=== PATIENT | female | born 1990 | race African-American/Black ===

== ENCOUNTER 2016-09-16 19:31 | Inpatient (IN) ==
[2016-09-16] MEDS ORDERED: SODIUM CHLORIDE 0.9% 1,000 ML IV STA (20:33)
[2016-09-16 20:55] LABS: Basophils # 0.1 10*3/uL (0.0-0.2); Basophils % 0.2 % (0.0-0.8); Hematocrit 33.1 VOL% (35.7-47.0); Immature Granulocytes % 1.1 %; Immature Granulocytes Absolute 0.35 #; Lymphocytes # 1.9 10*3/uL (1.4-4.0); Lymphocytes % 6.1 % (21.3-54.2); Mean Corpuscular HGB Conc 33.2 GM/DL (32-36); Mean Corpuscular Hemoglobin 27 PG (27-34); Mean Corpuscular Volume 82.1 FL (87-102); Mean Platelet Volume 9.5 FL (9.6-12.0); Monocytes # 4.3 10*3/uL (0.11-0.8); Monocytes % 13.8 % (1.7-12.7); Neutrophils # 24.6 10*3/uL (1.4-7.4); Neutrophils % 78.8 % (38.7-73.9); Platelet Count 371 T/CUMM (130-400); Red Blood Count 4.03 MC/CUMM (3.8-5.5); Red Cell Distribution Width 13.8 % (9.3-17.3); White Blood Count 31.2 T/CUMM (4-12)
--- NOTE | 2016-09-16 21:07 | XRay Report ---
History: Cough and fever. Right-sided wheezing Date: 09/16/2016 Study: Chest x-ray PA and lateral Comparison exam: December 19, 2015 The cardiomediastinal silhouette and pulmonary vasculature are unremarkable. The lungs and pleural spaces are clear. The osseous structures are unremarkable. Impression: No acute cardiopulmonary process. No significant interval change PROCEDURE INTERPRETED AT [facility] DEPARTMENT OF RADIOLOGY Final Report Signed by: Dr. Donna Hart
[2016-09-16] MEDS ORDERED: VANCOMYCIN INJ 1,000 MG in SODIUM CHLORIDE 0.9% 250 ML IV STA (21:15)
[2016-09-16] MEDS ORDERED: cefTRIAXone 1,000 MG in SODIUM CHLORIDE 0.9% 100 ML IV STA (21:15)
[2016-09-16 21:17] LABS: Lymphocytes 7 % (20-55); Ovalocytes Slight; Platelet Estimate Adequate; Poikilocytosis Slight; Segmented Neutrophils 81 % (50-85); Total Cells Counted 100
[2016-09-16 21:19] LABS: Calcium 9.1 MG/DL (8.5-10.1); Osmolality,Calculated 269.1 MOS/KG (273-304); Potassium 3.2 MMOL/L (3.5-5.1)
[2016-09-16] MEDS ORDERED: MORPHINE 2 MG/1 ML SYRINGE IV STA (21:20)
[2016-09-16] MEDS ORDERED: ONDANSETRON 4 MG/2 ML VIAL IV STA (21:20)
[2016-09-16] MEDS ORDERED: LORazepam 2 MG/1 ML VIAL IV STA (21:20)
[2016-09-16] MEDS ORDERED: ACYCLOVIR INJ 750 MG in SODIUM CHLORIDE 0.9% 250 ML IV SCH (21:30)
[2016-09-16] MEDS ORDERED: ACYCLOVIR INJ 1,000 MG in SODIUM CHLORIDE 0.9% 250 ML IV SCH (21:30)
[2016-09-16] MEDS ORDERED: ONDANSETRON 4 MG/2 ML VIAL ONE (21:32)
[2016-09-16] MEDS ORDERED: MORPHINE 2 MG/1 ML SYRINGE ONE (21:32)
[2016-09-16] MEDS ORDERED: LORazepam 2 MG/1 ML VIAL ONE (21:32)
[2016-09-16] MEDS ORDERED: VANCOMYCIN 1,000 MG VIAL ONE (21:56)
[2016-09-16] MEDS ORDERED: cefTRIAXone 1,000 MG VIAL ONE (21:56)
[2016-09-16] MEDS ORDERED: SODIUM CHLORIDE 0.9% 100 ML IV ONE (21:56)
[2016-09-16] MEDS ORDERED: KETOROLAC 30 MG/1 ML VIAL IV STA (23:06)
[2016-09-16] MEDS ORDERED: ACETAMINOPHEN 500 MG TABLET PO STA (23:06)
[2016-09-16 23:31] LABS: Appearance,CSF Clear; Red Blood Cell,CSF 1 C/CUMM; White Blood Cell,CSF 1 C/CUMM
[2016-09-16] MEDS ORDERED: ACETAMINOPHEN 325 MG TABLET PO PRN (23:49)
[2016-09-16] MEDS ORDERED: KETOROLAC 30 MG/1 ML VIAL ONE (23:50)
[2016-09-16] MEDS ORDERED: ACETAMINOPHEN 500 MG TABLET ONE (23:50)
--- NOTE | 2016-09-16 23:58 | Hospitalist History & Physical ---
Assessment and Plan (1) Fever Status: Acute Assessment and plan: Patient presented with a subjective fever and leukocytosis CSF seem to be negative. We will follow blood cultures and obtain urinalysis and culture. I will also get test and if negative get a CT abdomen without contrast to evaluate for Pyelonephritis. Start on Zosyn empirically due to very high white count Current Visit: Yes (2) Leucocytosis Status: Acute Assessment and plan: Likely due to pyelonephritis. There is subjective symptom of sore throat I will get a throat culture but I do not see obvious exudate Current Visit: Yes (3) Hypokalemia Status: Acute Assessment and plan: Replace with potassium chloride Current Visit: Yes History of Present Illness Chief complaint: Headache and fever History of present illness: Ms. Mari is a 25 year old female with no past medical history came to ER for evaluation of headache started 2 days ago feels like pressure and pulsatile associate with aching all over and fever as high as 102 at home. He goes down with Tylenol no coughing or shortness of breath but has sore throat. No nausea vomiting diarrhea no dysuria hematuria but does have like flank pain for 2 days without any vaginal discharge. In the ER she was evaluated with a CT scan of the head which did not reveal any acute abnormality. Chest x-ray was reported negative for any infiltrate. She underwent CSF studies and started empirically on antibiotics including vancomycin and Rocephin and the acyclovir. CSF studies showing WBC 1 glucose 81 RBC 1 total protein 22 lactate 2.2 . Blood culture were obtained. I will call to admit the patient Home Medications Medication Instructions Recorded Confirmed Type No Known Home Medications [No 09/16/16 09/16/16 History Known Home Medications] Allergies Allergy/AdvReac Type Severity Reaction Status Date / Time No Known Allergies Allergy Verified 04/20/15 11:53 Medical,Surgical,& Family Hx - Medical History Psychological: History of: Anxiety Disorders - Surgical History Reproductive Surgeries: Surgical HX of;: Section - Family History Family History: noncontributory - Social History Smoking Status: Smoker, status unknown Frequency of Alcohol Use: None Type of Drug Use: None 12 point system: reviewed and no additional remarkable complaints except as stated (Unless indicated in HPI) Exam - Constitutional Vitals: Period Temp Pulse Resp BP Sys/López Pulse Ox Last 24 Hr 99.7 F-99.7 F 74-120 18-20 117-153/74-100 100-100 General appearance: normal weight, no acute distress - Head Head exam: Present: normal inspection, normocephalic - Eye Eye exam: Present: EOMI. Absent: conjunctival injection, scleral icterus Pupils: Present: KAUSHAL, normal accommodation - ENT ENT exam: Present: normal exam, other (Tonsils may be enlarged but no exudate or congestion) - Respiratory Respiratory exam: Present: clear to auscultation bilaterally. Absent: rales, rhonchi - Cardiovascular Cardiovascular exam: Present: regular rate and rhythm. Absent: tachycardia - GI/Abdominal GI/Abdominal exam: Present: normal bowel sounds, tenderness (Right flank/CVA tenderness), soft. Absent: distended - Extremities Exam Extremities exam: Present: normal inspection. Absent: edema - Neurological Exam Neurological exam: Present: alert, oriented X3. Absent: motor sensory deficit - Skin Skin exam: Present: normal color Results - Labs CBC & BMP: 09/16/16 20:41 09/16/16 20:41 Lab Results: I have reviewed the past 24 hour labs
[2016-09-17 00:13] LABS: Apearance,Urine CLOUDY (Clear); Bacteria,Urine Moderate /HPF (Few); Bilirubin,Urine Negative (Negative); Blood, Urine Large mg/dL (Negative); Glucose,Urine (UA) Negative (Negative); Ketones,Urine 5 mg/dL (Negative); Mucus,Urine Occasional /LPF (Occasional); Nitrite,Urine Positive (Negative); Protein,Urine 30 MG/DL; RBC,Urine 4 /HPF (0-4); Renal Epithelial Cells,Urine Occasional /HPF (<1); Squamous Epithelial Cell,Urine Moderate /HPF (0-10); Transitional Epi Cells,Urine Occasional /HPF (<1); Urine Color Yellow (Yellow); Urine Specific Gravity 1.012 (1.001-1.035); Urine Urobilinogen < 2.0 EU/DL (0.2-1.0); WBC,Urine 67 /HPF (0-6)
[2016-09-17] MEDS ORDERED: POTASSIUM CHLORIDE 20 MEQ TABLET PO ONE (00:30)
--- NOTE | 2016-09-17 00:30 | Emergency Department Note ---
ISmitha Emily, am scribing for, and in the presence of, Chema Lindo M.D. 20 :40. Guicho Mohr Howard T, M.D., personally performed the services described in this documentation, ascribed by Mariajose Bone in my presence, and it is both accurate and complete . Arrival - Arrival Chief Complaint: Upper Respiratory Stated Complaint: HURTING ALL OVER/FEVER ED Nursing Triage Note: patient states she is "hurting allover and hot", no temp taken at home also c/o headache. temp in triage 99.7 Mode of Arrival: Wheelchair Limitations: No Limitations Source: Patient Time Seen by Provider: 09/16/16 20:22 - History of Present Illness HPI Narrative: Pt is a 25 y/o female who came to ED with c/o severe MADDEN, fever in waves, and body aches that started two days. Pt has associated sxs of productive cough and pain worse when coughs, neck pain and worse with movement, and no appetite. Pt denies recent sinus infection, hx of PNA or lung issues, or asthma. Pt reports taking Tylenol for the fever that came in waves which helped reduce but would return, and took Benadryl for the productive cough. Pt's PCP is Dr. Gomez but denies smoking hx. Onset (ago): day(s) Consistency: constant Severity: mild, moderate Severity scale (1-10): 4 Quality: aching Allergies/Adverse Reactions: Allergies Allergy/AdvReac Type Severity Reaction Status Date / Time No Known Allergies Allergy Verified 04/20/15 11:53 Home Medications: Home Medications Medication Instructions Recorded Confirmed Type No Known Home Medications [No 09/16/16 09/16/16 History Known Home Medications] Review of System - Review of System 12 point system: reviewed and no additional remarkable complaints except as stated - Review of System Constitutional: Present: fever, weakness (body aches). Absent: chills Respiratory: Present: cough. Absent: respiratory distress, wheezing Cardiovascular: Absent: chest pain Gastrointestinal: Absent: abdominal pain, nausea, vomiting Musculoskeletal: Present: neck pain (with movement). Absent: arm pain, back pain, leg pain Skin: Absent: rash Neurological: Present: headache (severe). Absent: confusion, abnormal gait, vertigo Medical,Surgical,& Family Hx - Medical History Psychological: History of: Anxiety Disorders - Surgical History Surgical History: noncontributory - Family History Family History: noncontributory - Social History Smoking Status: Smoker, status unknown Frequency of Alcohol Use: None Type of Drug Use: None Marital Status: Single Lives With:: Parent Functional capacity: independent ambulation Exam Vital Signs: Vital Signs Temperature 99.7 F H 09/16/16 19:34 Pulse Rate 118 H 09/16/16 22:36 Respiratory Rate 18 09/16/16 22:36 Blood Pressure 117/74 09/16/16 22:36 O2 Sat by Pulse Oximetry 100 09/16/16 22:36 - General General appearance: alert, in no apparent distress - Head Head exam: Present: atraumatic, normocephalic - Eye Eye exam: Present: PERRL, EOMI - ENT ENT exam: Present: mucous membranes moist. Absent: mucous membranes dry - Neck Neck exam: Present: full ROM, trachea midline. Absent: tenderness, meningismus - Chest Chest inspection: Present: symmetric chest wall rise. Absent: tenderness - Respiratory Respiratory exam: Present: wheezes (right side). Absent: accessory muscle use, respiratory distress - Cardiovascular Cardiovascular exam: Present: regular rate, normal rhythm, normal heart sounds - Abdominal Exam Abdominal exam: Present: soft, normal bowel sounds. Absent: distention, tenderness - Extremities Exam Extremities exam: Present: full ROM. Absent: tenderness, pedal edema - Neurological Exam Neurological exam: Present: alert, oriented X3, CN II-XII intact. Absent: motor sensory deficit - Psychiatric Psychiatric exam: Present: normal affect, normal mood - Skin Skin exam: Present: warm, dry Course Course Narrative: Medical decision making: Negative CT scan and clear CSF, however with elevated white cell count and significant headache treatment initiated presumptively for possible meningitis encephalitis or similar. She does have evidence of UTI so this is likely because of elevated white count and symptoms even though she denies urinary tract infection symptoms. Will discuss with hospitalist for continued evaluation and treatment of hospitalization for reevaluation of in the morning Results - Labs CBC & BMP: 09/16/16 20:41 09/16/16 20:41 Lab Results: I have reviewed the patients labs Labs: Laboratory Tests 09/16/16 20:41 WBC 31.2 H RBC 4.03 Hgb 11.0 L Hct 33.1 L MCV 82.1 L Plt Count 371 MPV 9.5 L Neut % (Auto) 78.8 H Lymph % (Auto) 6.1 L Coffee % (Auto) 13.8 H Neut # (Auto) 24.6 H Coffee # (Auto) 4.3 H Laboratory Tests 09/16/16 20:41 Total Counted 100 Segmented Neutrophils 81 Lymphocytes 7 L Monocytes 12 Platelet Estimate Adequate Poikilocytosis Slight Ovalocytes Slight Laboratory Tests 09/16/16 20:41 Sodium 135 L Potassium 3.2 L Chloride 103 Carbon Dioxide 23 Creatinine 1.10 H Glucose 118 H Calculated Osmolality 269.1 L Laboratory Tests 09/16/16 09/16/16 09/16/16 21:35 21:38 21:38 Lactic Acid 0.9 CSF Glucose 81 H CSF Total Protein 22 Microbiology 09/16/16 21:38 Cerebral Spinal Fluid Direct Antigen Panel - Final Neg for Antigens-see report Laboratory Tests 09/16/16 21:38 CSF Lactate 2.2 Laboratory Tests 09/16/16 21:38 CSF Appearance Clear CSF Color Colorless CSF WBC 1 CSF RBC 1 CSF Diff Total Count 0 CSF Diff Comment - Diagnostic Findings Procedure: Chest x-ray: report reviewed by me (No acute cardiopulmonary process. No significant interval change.), CT: report reviewed by me (Head and brain: No acute process) Disposition Clinical Impression: Fever, Headache, UTI (urinary tract infection) Case discussed with: patient, patient's family Disposition: Still a Patient Condition: Stable Time of Disposition: 00:30
[2016-09-17] MEDS: ACYCLOVIR INJ 750 MG in SODIUM CHLORIDE 0.9% 250 ML IV SCH ×4 (02:14→23:14)
[2016-09-17] MEDS: SODIUM CHLORIDE 0.9% 1,000 ML IV SCH ×2 (02:17→16:52)
[2016-09-17] MEDS: PIPERACILLIN/TAZOBACTAM 3,375 MG in SODIUM CHLORIDE 0.9% 100 ML IV SCH ×2 (02:22→09:27)
[2016-09-17 07:03] LABS: Basophils % 0.1 % (0.0-0.8); Hematocrit 30.7 VOL% (35.7-47.0); Hemoglobin 9.9 GM/DL (12.0-16.0); Immature Granulocytes % 0.8 %; Immature Granulocytes Absolute 0.21 #; Lymphocytes # 2.8 10*3/uL (1.4-4.0); Lymphocytes % 10.9 % (21.3-54.2); Mean Corpuscular HGB Conc 32.2 GM/DL (32-36); Mean Corpuscular Hemoglobin 27 PG (27-34); Mean Platelet Volume 9.7 FL (9.6-12.0); Monocytes # 2.9 10*3/uL (0.11-0.8); Monocytes % 11.6 % (1.7-12.7); Neutrophils # 19.5 10*3/uL (1.4-7.4); Neutrophils % 76.6 % (38.7-73.9); Platelet Count 319 T/CUMM (130-400); Red Cell Distribution Width 14.2 % (9.3-17.3); White Blood Count 25.4 T/CUMM (4-12)
[2016-09-17 07:28] LABS: Band Neutrophils 5 % (0-10); Hypochromasia 1+; Lymphocytes 10 % (20-55); Segmented Neutrophils 77 % (50-85); Total Cells Counted 100
[2016-09-17 07:29] LABS: Microcytosis Slight
[2016-09-17 07:31] LABS: Calcium 8.3 MG/DL (8.5-10.1); Osmolality,Calculated 274.5 MOS/KG (273-304); Potassium 3.8 MMOL/L (3.5-5.1)
--- NOTE | 2016-09-17 08:29 | CT Report ---
History: Headache and fever Date: 09/16/2016 Study: CT head without contrast Comparison exam: No previous head CT available The study was also reviewed by [facility]. Transaxial CT sections were obtained through the head without IV contrast. Total DLP measures 1012.1 mGy*cm. This CT exam was performed using one or more the following dose reduction techniques: Automated exposure control, adjustment of the MA and/or KV according to patient size, or use of iterative reconstruction technique. The ventricles are midline in position without evidence of hydrocephalus. There is no mass or parenchymal hemorrhage. There is no gross CT evidence of acute cortical stroke. There is no extra-axial hematoma. There is no acute abnormality of the calvarium. The partially visualized paranasal sinuses and mastoid air cells are clear. Impression: No acute intracranial process PROCEDURE INTERPRETED AT [facility] DEPARTMENT OF RADIOLOGY Final Report Signed by: Dr. Donna Hart
[2016-09-17] MEDS: PANTOPRAZOLE 40 MG TABLET PO SCH (09:27)
[2016-09-17] MEDS: ENOXAPARIN 40 MG/0.4 ML SYRINGE SUBCUT SCH (09:27)
--- NOTE | 2016-09-17 10:38 | CT Report ---
History: Fever and leukocytosis. Suspect pyelonephritis. Right flank pain Date: 09/17/2016 Study: CT abdomen and pelvis without contrast Comparison exam: No previous similar study Technique: Spiral CT sections were obtained from the lung bases to the pubic symphysis without contrast. The CT exam was performed using one or more of the following dose reduction techniques: Automated exposure control, adjustment of the mA and/or kV according to patient size, or use of iterative reconstruction technique. CT abdomen: There is mild platelike dependent atelectasis in the lower lobes. There is no gross pleural or pericardial effusion. There is no evidence of pneumoperitoneum. The liver, spleen, pancreas, adrenal glands, bile ducts, and fluid-filled gallbladder are generally unremarkable in noncontrast CT appearance. There are some occasional scattered punctate calcifications measuring less than 2 to 3 mm in the renal sinuses bilaterally. This could represent nonobstructing nephrolithiasis or medullary nephrocalcinosis. There is no hydronephrosis. There is no definite radiopaque ureteral stone. There is some mild asymmetric perinephric fat stranding on the right which could be a secondary sign of pyelonephritis. There is no gross renal mass on this noncontrast study. There is no aortic aneurysm. There is no obvious lymphadenopathy by size criteria. The appendix is partially visualized and is grossly unremarkable where seen without obvious evidence of appendicitis. CT pelvis: There is a nonspecific 4.6 cm low density in the left adnexal area which likely represents nonspecific ovarian cyst. There is minimal free fluid in the pelvis. Impression: Mild asymmetric perinephric fat stranding on the right which could be a secondary sign of pyelonephritis. There is no obvious perinephric abscess Bilateral nonobstructing nephrolithiasis versus bilateral medullary nephrocalcinosis Nonspecific 4.6 cm left ovarian cyst PROCEDURE INTERPRETED AT [facility] DEPARTMENT OF RADIOLOGY Final Report Signed by: Dr. Donna Hart
[2016-09-17] MEDS: ONDANSETRON 4 MG/2 ML VIAL IV PRN (10:55)
--- NOTE | 2016-09-17 11:31 | Hospitalist Progress Note ---
Assessment and Plan (1) Pyelonephritis Status: Acute Assessment and plan: UA and CT consistent with this F/u urine culture Given a dose of rocephin in the ED Switched to zosyn inpatient Current Visit: Yes (2) Leucocytosis Status: Acute Assessment and plan: Secondary to pyelonephritis Also with concern for meningitis, preliminary studies unimpressive Current Visit: Yes (3) Headache Status: Acute Assessment and plan: Better today LP performed in the ED Preliminary studies negative so far Follow-up the rest of testing Given dose of vancomycin, rocephin and acyclovir in the ED Now on acyclovir and zosyn Current Visit: Yes Hospitalist: Subjective Interval history: No acute events overnight. Patient reports that her headache is a little better. She did have an episode of emesis this morning. Exam - Constitutional Vitals: Period Temp Pulse Resp BP Sys/López Pulse Ox Last 24 Hr 96.8 F-99.7 F 74-120 18-20 103-153/64-100 99-100 General appearance: normal weight - Head Head exam: Present: normocephalic, atraumatic - Eye Eye exam: Present: EOMI Pupils: Present: KAUSHAL - ENT ENT exam: Present: normal exam - Neck Neck exam: Present: normal inspection - Respiratory Respiratory exam: Present: clear to auscultation bilaterally. Absent: rhonchi, wheezes - Cardiovascular Cardiovascular exam: Present: regular rate and rhythm - GI/Abdominal GI/Abdominal exam: Present: normal bowel sounds, soft. Absent: tenderness, rebound - Extremities Exam Extremities exam: Present: normal inspection - Back Exam Back exam: Present: normal inspection - Neurological Exam Neurological exam: Present: alert, oriented X3 - Psychiatric Psychiatric exam: Present: normal affect, normal mood - Skin Skin exam: Present: warm, intact Results - Labs CBC & BMP: 09/17/16 06:27 09/17/16 06:27 Quality Measures - Stroke Symptom Onset Unknown: No
[2016-09-17] MEDS ORDERED: MORPHINE 2 MG/1 ML SYRINGE IV PRN (12:24)
[2016-09-17] MEDS: cefTRIAXone 1,000 MG in SODIUM CHLORIDE 0.9% 100 ML IV SCH (17:10)
[2016-09-17] MEDS: VANCOMYCIN INJ 1,000 MG in SODIUM CHLORIDE 0.9% 250 ML IV SCH (20:37)
[2016-09-17] MEDS: guaiFENesin/CODEINE 5 ML LIQUID PO PRN (23:13)
[2016-09-18] MEDS: SODIUM CHLORIDE 0.9% 1,000 ML IV SCH ×4 (00:49→18:26)
[2016-09-18] MEDS: VANCOMYCIN INJ 1,000 MG in SODIUM CHLORIDE 0.9% 250 ML IV SCH ×3 (05:08→22:18)
[2016-09-18 05:32] LABS: Basophils % 0.1 % (0.0-0.8); Eosinophils % 0.2 % (0.00-10.9); Hematocrit 27.8 VOL% (35.7-47.0); Hemoglobin 8.8 GM/DL (12.0-16.0); Lymphocytes # 2.8 10*3/uL (1.4-4.0); Lymphocytes % 13.9 % (21.3-54.2); Mean Corpuscular HGB Conc 31.7 GM/DL (32-36); Mean Corpuscular Hemoglobin 26 PG (27-34); Mean Corpuscular Volume 83.2 FL (87-102); Mean Platelet Volume 9.9 FL (9.6-12.0); Monocytes # 2.4 10*3/uL (0.11-0.8); Monocytes % 12.1 % (1.7-12.7); Neutrophils # 14.4 10*3/uL (1.4-7.4); Neutrophils % 72.7 % (38.7-73.9); Platelet Count 317 T/CUMM (130-400); Red Blood Count 3.34 MC/CUMM (3.8-5.5); Red Cell Distribution Width 14.2 % (9.3-17.3); White Blood Count 19.8 T/CUMM (4-12)
[2016-09-18 06:04] LABS: Calcium 8.3 MG/DL (8.5-10.1); Magnesium 1.9 MG/DL (1.8-2.4); Osmolality,Calculated 271.7 MOS/KG (273-304); Potassium 3.6 MMOL/L (3.5-5.1)
[2016-09-18 06:09] LABS: Giant Platelets Few; Hypochromasia 1+; Microcytosis Slight; Ovalocytes Slight; Platelet Estimate Adequate
[2016-09-18] MEDS: ONDANSETRON 4 MG/2 ML VIAL IV PRN ×3 (06:53→21:04)
[2016-09-18] MEDS: ACYCLOVIR INJ 750 MG in SODIUM CHLORIDE 0.9% 250 ML IV SCH ×2 (07:12→17:05)
[2016-09-18] MEDS: ENOXAPARIN 40 MG/0.4 ML SYRINGE SUBCUT SCH (08:48)
[2016-09-18] MEDS: PANTOPRAZOLE 40 MG TABLET PO SCH (08:48)
--- NOTE | 2016-09-18 10:44 | Hospitalist Progress Note ---
Assessment and Plan (1) Pyelonephritis Status: Acute Assessment and plan: UA and CT consistent with this F/u urine culture Given a dose of rocephin in the ED Continue rocephin Current Visit: Yes (2) Leucocytosis Status: Acute Assessment and plan: Secondary to pyelonephritis Improving Also with concern for meningitis, preliminary studies unimpressive Current Visit: Yes (3) Headache Status: Acute Assessment and plan: Better today LP performed in the ED Preliminary studies negative so far Follow-up the rest of testing Given dose of vancomycin, rocephin and acyclovir in the ED Continue vancomycin, rocephin and acyclovir Current Visit: Yes Hospitalist: Subjective Interval history: No acute events overnight. Yesterday evening patient with episode of bad chills and headache. She reports that the headaches are not relieved with morphine, it only makes her sleepy. Exam - Constitutional Vitals: Period Temp Pulse Resp BP Sys/López Pulse Ox Last 24 Hr 97.6 F-101 F 105-116 16-20 102-131/52-75 95-100 General appearance: over weight - Head Head exam: Present: normocephalic, atraumatic - Eye Eye exam: Present: EOMI Pupils: Present: KAUSHAL - ENT ENT exam: Present: normal exam - Neck Neck exam: Present: normal inspection - Respiratory Respiratory exam: Present: clear to auscultation bilaterally. Absent: rhonchi, wheezes - Cardiovascular Cardiovascular exam: Present: regular rate and rhythm - GI/Abdominal GI/Abdominal exam: Present: normal bowel sounds, soft. Absent: tenderness, rebound - Extremities Exam Extremities exam: Present: normal inspection - Back Exam Back exam: Present: normal inspection - Neurological Exam Neurological exam: Present: alert, oriented X3 - Psychiatric Psychiatric exam: Present: normal affect, normal mood - Skin Skin exam: Present: warm, intact Results - Labs CBC & BMP: 09/18/16 05:12 09/18/16 05:12 Quality Measures - Stroke Symptom Onset Unknown: No
[2016-09-18] MEDS: guaiFENesin/CODEINE 5 ML LIQUID PO PRN (13:20)
[2016-09-18] MEDS: SUMAtriptan 25 MG TABLET PO PRN (13:21)
[2016-09-18] MEDS: HYDROmorphone 2 MG/1 ML VIAL IV PRN ×2 (17:05→21:00)
[2016-09-18] MEDS: cefTRIAXone 1,000 MG in SODIUM CHLORIDE 0.9% 100 ML IV SCH (20:09)
[2016-09-19] MEDS: HYDROmorphone 2 MG/1 ML VIAL IV PRN ×5 (01:32→21:19)
[2016-09-19] MEDS: SODIUM CHLORIDE 0.9% 1,000 ML IV SCH ×3 (01:36→15:21)
[2016-09-19] MEDS: ACYCLOVIR INJ 750 MG in SODIUM CHLORIDE 0.9% 250 ML IV SCH ×3 (01:37→23:12)
[2016-09-19] MEDS: PROMETHAZINE INJ 12.5 MG in SODIUM CHLORIDE 0.9% 50 ML IV PRN ×2 (04:56→22:35)
[2016-09-19] MEDS: VANCOMYCIN INJ 1,000 MG in SODIUM CHLORIDE 0.9% 250 ML IV SCH (06:04)
[2016-09-19 06:29] LABS: Basophils % 0.3 % (0.0-0.8); Eosinophils # 0.1 10*3/uL (0.0-0.87); Eosinophils % 0.6 % (0.00-10.9); Hematocrit 25.9 VOL% (35.7-47.0); Hemoglobin 8.3 GM/DL (12.0-16.0); Immature Granulocytes % 0.6 %; Immature Granulocytes Absolute 0.08 #; Lymphocytes # 2.4 10*3/uL (1.4-4.0); Lymphocytes % 16.9 % (21.3-54.2); Mean Corpuscular Hemoglobin 26 PG (27-34); Mean Corpuscular Volume 82.5 FL (87-102); Mean Platelet Volume 10.2 FL (9.6-12.0); Monocytes # 1.6 10*3/uL (0.11-0.8); Monocytes % 11.4 % (1.7-12.7); Neutrophils # 9.9 10*3/uL (1.4-7.4); Neutrophils % 70.2 % (38.7-73.9); Platelet Count 345 T/CUMM (130-400); Red Blood Count 3.14 MC/CUMM (3.8-5.5); Red Cell Distribution Width 14.4 % (9.3-17.3)
[2016-09-19 07:02] LABS: Calcium 8.2 MG/DL (8.5-10.1); Magnesium 1.7 MG/DL (1.8-2.4); Osmolality,Calculated 270.7 MOS/KG (273-304); Potassium 3.4 MMOL/L (3.5-5.1)
[2016-09-19] MEDS: ENOXAPARIN 40 MG/0.4 ML SYRINGE SUBCUT SCH (08:16)
[2016-09-19] MEDS: PANTOPRAZOLE 40 MG TABLET PO SCH (08:18)
--- NOTE | 2016-09-19 08:39 | XRay Report ---
XR chest 2V Indication: Cough Comparison: 16 September 2016 Findings: The heart and mediastinum are normal in size and configuration. The pulmonary vascularity is normal in caliber. There is trace increased left lower lung density. No other lung infiltrates, effusions, pneumothorax or other abnormality is demonstrated. Impression: Trace increased left lower lung density, may indicate pneumonia. PROCEDURE INTERPRETED AT [facility] DEPARTMENT OF RADIOLOGY Final Report Signed by: Dr. Geoffrey Byrne
[2016-09-19] MEDS ORDERED: MAGNESIUM SULF RIDER 4 GM in PREMIX 1 EACH IV PRN (09:49)
--- NOTE | 2016-09-19 09:54 | Hospitalist Progress Note ---
Assessment and Plan (1) Pyelonephritis Status: Acute Assessment and plan: UA and CT consistent with this F/u urine culture Given a dose of rocephin in the ED Continue rocephin Current Visit: Yes (2) Leucocytosis Status: Acute Assessment and plan: Secondary to pyelonephritis Improving Also with concern for meningitis, preliminary studies unimpressive Repeat CXR yesterday with questionable pneumonia Current Visit: Yes (3) Headache Status: Acute Assessment and plan: LP performed in the ED Preliminary studies negative so far Follow-up the rest of testing Given dose of vancomycin, rocephin and acyclovir in the ED Continue vancomycin, rocephin and acyclovir CT head without acute process With continuation of excruciating headache, will obtain MRI Current Visit: Yes Hospitalist: Subjective Interval history: Yesterday evening patient with several episodes of emesis and headache unrelieved with pain medications. Phenergan an dilaudid added. She is doing better this morning. Reports that the new medications are working better. Exam - Constitutional Vitals: Period Temp Pulse Resp BP Sys/López Pulse Ox Last 24 Hr 98.5 F-99.9 F 114-129 16-20 125-136/69-90 97-98 General appearance: over weight - Head Head exam: Present: normocephalic, atraumatic - Eye Eye exam: Present: EOMI Pupils: Present: KAUSHAL - ENT ENT exam: Present: normal exam - Neck Neck exam: Present: normal inspection - Respiratory Respiratory exam: Present: clear to auscultation bilaterally. Absent: wheezes - Cardiovascular Cardiovascular exam: Present: regular rate and rhythm - GI/Abdominal GI/Abdominal exam: Present: normal bowel sounds, soft - Extremities Exam Extremities exam: Present: normal inspection - Back Exam Back exam: Present: normal inspection - Neurological Exam Neurological exam: Present: alert, oriented X3 - Psychiatric Psychiatric exam: Present: normal affect, normal mood - Skin Skin exam: Present: warm, intact Results - Labs CBC & BMP: 09/19/16 05:26 09/19/16 05:26 Quality Measures - Stroke Symptom Onset Unknown: No
--- NOTE | 2016-09-19 10:47 | Magnetic Resonance Report ---
MR head/brain wo con Indication: Headache Comparison: CT brain dated September 16, 2016 Technique: Multiplanar magnetic resonance imaging was performed of the brain without the use of intravenous contrast. Findings: The midline structures are nondisplaced. There is no convincing evidence of hydrocephalus. The nair-white matter differentiation is maintained. There is no convincing evidence of acute intracranial hemorrhage or ischemia. The included orbits and their contents appear within normal limits. T2 major vascular flow voids are maintained. IMPRESSION: No acute intracranial abnormality demonstrated. PROCEDURE INTERPRETED AT [facility] DEPARTMENT OF RADIOLOGY Final Report Signed by: Dr Doug King
[2016-09-19] MEDS: POTASSIUM CHLORIDE 20 MEQ TABLET PO PRN ×3 (12:56→16:40)
[2016-09-19] MEDS: MAGNESIUM SULF RIDER 2 GM in PREMIX 1 EACH IV PRN (14:33)
[2016-09-19] MEDS: VANCOMYCIN INJ 1,500 MG in SODIUM CHLORIDE 0.9% 500 ML IV SCH (16:41)
[2016-09-19] MEDS: cefTRIAXone 1,000 MG in SODIUM CHLORIDE 0.9% 100 ML IV SCH (21:23)
[2016-09-19] MEDS: ONDANSETRON 4 MG/2 ML VIAL IV PRN (21:27)
[2016-09-20] MEDS: HYDROmorphone 2 MG/1 ML VIAL IV PRN (01:40)
[2016-09-20] MEDS: VANCOMYCIN INJ 1,500 MG in SODIUM CHLORIDE 0.9% 500 ML IV SCH ×2 (01:46→10:01)
[2016-09-20] MEDS: ACYCLOVIR INJ 750 MG in SODIUM CHLORIDE 0.9% 250 ML IV SCH ×2 (06:35→12:06)
[2016-09-20 06:52] LABS: Basophils % 0.3 % (0.0-0.8); Eosinophils # 0.2 10*3/uL (0.0-0.87); Eosinophils % 1.9 % (0.00-10.9); Hematocrit 26.9 VOL% (35.7-47.0); Hemoglobin 8.8 GM/DL (12.0-16.0); Immature Granulocytes % 0.5 %; Immature Granulocytes Absolute 0.07 #; Lymphocytes # 2.8 10*3/uL (1.4-4.0); Lymphocytes % 21.5 % (21.3-54.2); Mean Corpuscular HGB Conc 32.7 GM/DL (32-36); Mean Corpuscular Hemoglobin 27 PG (27-34); Mean Corpuscular Volume 81.5 FL (87-102); Mean Platelet Volume 9.8 FL (9.6-12.0); Monocytes # 1.4 10*3/uL (0.11-0.8); Monocytes % 11.1 % (1.7-12.7); Neutrophils # 8.3 10*3/uL (1.4-7.4); Neutrophils % 64.7 % (38.7-73.9); Platelet Count 441 T/CUMM (130-400); Red Cell Distribution Width 14.2 % (9.3-17.3); White Blood Count 12.8 T/CUMM (4-12)
[2016-09-20 07:30] LABS: Calcium 8.1 MG/DL (8.5-10.1); Magnesium 1.8 MG/DL (1.8-2.4); Osmolality,Calculated 272.5 MOS/KG (273-304)
--- NOTE | 2016-09-20 07:56 | Hospitalist Progress Note ---
Assessment and Plan (1) Headache Status: Acute Assessment and plan: This is been associated with leukocytosis. Lumbar puncture was nonrevealing Current Visit: Yes Hospitalist: Subjective Interval history: 25-year-old female who presented with complaints of headache with a 31,200 white count with increased neutrophils and monocytes. She had mild hypokalemia. Her urine was positive for blood, nitrates, and leukocytes but subsequent urine culture has been negative. Lumbar puncture done in the emergency department is unremarkable as well. Since hospital admission patient has been afebrile with gradually decreasing white count reflective of fall in both neutrophils and monocytes. She complained of some throat problems however her strep screen is negative. Vital signs are stable overnight she remains afebrile. Exam - Constitutional Vitals: Period Temp Pulse Resp BP Sys/López Pulse Ox Last 24 Hr 97.4 F-99.5 F 100-123 16-18 123-147/66-91 91-99 General appearance: normal weight, no acute distress - Respiratory Respiratory exam: Present: clear to auscultation bilaterally. Absent: rales, rhonchi, wheezes - Cardiovascular Cardiovascular exam: Present: regular rate and rhythm - GI/Abdominal GI/Abdominal exam: Present: normal bowel sounds - Neurological Exam Neurological exam: Present: alert, oriented X3 Results - Labs CBC & BMP: 09/20/16 06:01 09/20/16 06:01 Labs: Magnesium 1.8 - Diagnostic Findings Procedure: MRI: report reviewed by me (Of head demonstrates no abnormalities) Quality Measures - Stroke Symptom Onset Unknown: No
[2016-09-20] MEDS: SODIUM CHLORIDE 0.9% 1,000 ML IV SCH ×5 (09:53→23:08)
[2016-09-20] MEDS: ENOXAPARIN 40 MG/0.4 ML SYRINGE SUBCUT SCH (09:55)
[2016-09-20] MEDS: PANTOPRAZOLE 40 MG TABLET PO SCH (09:55)
[2016-09-20] MEDS: SUMAtriptan 25 MG TABLET PO PRN (09:55)
[2016-09-20] MEDS: MAGNESIUM SULF RIDER 2 GM in PREMIX 1 EACH IV PRN (10:01)
--- NOTE | 2016-09-20 12:30 | Infectious Disease Consult ---
Assessment and Plan (1) Fever Status: Acute Assessment and plan: Possibly due to lower respiratory tract infection [atypical] plus or minus urinary tract infection. Fever has resolved for the past 4 days and leukocytosis almost resolved. Recommendations: Would treat empirically with levofloxacin to cover atypical lung infection, given some worsening of chest x-ray since admission and the fact that the patient is still having a cough. Levofloxacin will also empirically treat UTI [E. coli isolated in the past was sensitive to quinolones] Thank you very much for the consult. Call again prn. Discussed with Dr. Cast Current Visit: Yes (2) Headache Status: Acute Assessment and plan: There is no evidence of meningitis on CSF analysis. Recommendations: Stop acyclovir, vancomycin, and ceftriaxone. Current Visit: Yes (3) Leucocytosis Status: Acute Assessment and plan: Significantly improved since admission. Causes respiratory tract infection versus urinary tract infection. Current Visit: Yes (4) UTI (urinary tract infection) Status: Acute Assessment and plan: She had significant pyuria on admission and there was some perinephric stranding on the right suggestive of pyelonephritis though patient did not have any irritative urinary symptoms. She has had E. coli UTI twice in the past last year. Recommendations: She has been on ceftriaxone for the past 4-5 days and I will stop that and instead give her levofloxacin 500 mg daily which she can continue for 10 days to complete a total of 14 days empiric therapy for possible right pyelonephritis. Current Visit: Yes History of Present Illness Chief complaint: Leukocytosis, headache History of present illness: Ms. Mari is a 25 year old female with no significant past medical history was well until 2 weeks ago when she developed URI symptoms including sore throat cough nasal congestion. She also was experiencing headache worse with her cough and started having fever so she went to the emergency room about a week ago however she was discharged home with advice to take djyn-phz-boplxhl medicines for her URI. She continued to feel malaise and weak and had worsening fever and then started to have severe chills so she came to the hospital 4 days ago and was admitted. Because she was expensing headache a lumbar puncture was done however the CSF analysis was unremarkable. She was found to have pyuria though urine culture came back negative. She never had any irritative urinary symptoms. She has been on acyclovir vancomycin and ceftriaxone. Overall she is feeling better but today her main problem is sore throat with dysphasia. I am asked to advise on antibiotic therapy. The patient has been afebrile for the past 4 days. Headache only hurts when she coughs and there is no sputum production. She vomited last week but none this week and she has not had abdominal pain or diarrhea. Appetite is okay. Home Medications Medication Instructions Recorded Confirmed Type No Known Home Medications [No 09/16/16 09/16/16 History Known Home Medications] Allergies Allergy/AdvReac Type Severity Reaction Status Date / Time No Known Allergies Allergy Verified 04/20/15 11:53 12 point system: reviewed and no additional remarkable complaints except as stated (Per HPI) Medical,Surgical,& Family Hx - Medical History Psychological: History of: Anxiety Disorders - Surgical History Abdominal Surgeries: Patient denies: Abdominal Surgery Reproductive Surgeries: Surgical HX of;: Section, Gynecologic Surgery - Family History Family History: Reports;: Family Cancer, Family Diabetes, Family Hypertension - Social History Smoking Status: Smoker, status unknown Frequency of Alcohol Use: None Type of Drug Use: None Infectious Disease Exam H&P - Constitutional Vitals: Vital Signs Temp Pulse Resp BP Pulse Ox 99.2 F 93 H 18 135/90 93 L 09/20/16 11:23 09/20/16 11:23 09/20/16 11:23 09/20/16 11:23 09/20/16 11:23 Intake and Output 09/19/16 09/20/16 09/20/16 23:59 07:59 15:59 Intake Total 850.5 / 850.5 1600.5 / 1600.5 1300 / 1300 Output Total Balance 840.5 / 840.5 1600.5 / 1600.5 1300 / 1300 Intake: IV 200.5 / 200.5 1300.5 / 1300.5 1300 / 1300 Zovirax Inj 750 mg In Ns 250 / 250 250 / 250 250 ml @ 250 mls/hr IV Q8H CARLOS Rx#:[id number] Magnesium Sulf Jd 2 gm 50 / 50 50 / 50 /50 ml In Premix 1 Each @ 25 mls/hr IV .PER PROTOCOL PRN Rx#: [id number] Phenergan Inj 12.5 mg In 50.5 / 50.5 50.5 / 50.5 Ns 50 ml @ 102 mls/hr IV Q6H PRN Rx#:[id number] Ns 1,000 ml @ 125 mls/hr 1000 / 1000 IV .Q8H CARLOS Rx#: [id number] Vancomycin Inj 5,000 mg 1000 / 1000 In Ns 500 ml @ 250 mls/hr IV Q8H CARLOS Rx#: [id number] Rocephin 1,000 mg In Ns 100 / 100 100 ml @ 200 mls/hr IV Q24H CARLOS Rx#:[id number] Oral 650 / 650 300 / 300 Output: Urine 10 / 10 Other: Voiding Method Toilet Toilet # Voids 4 # Bowel Movements 0 Exam: General: Patient comfortable, nontoxic appearing HEENT: Mucous membranes pink and moist, anicteric acyanotic, KAUSHAL, no oropharyngeal exudates, tonsils mildly enlarged but not inflamed, no exudates Neck: Supple, no thyroid gland enlargement, shotty submandibular lymphadenopathy , mobile, nontender Respiratory system: Breath sounds vesicular, no crepitations or wheezes Cardiovascular: Normal S1 and S2, no murmurs appreciated Abdomen: Normal bowel sounds, soft nontender throughout, no organomegaly or mass , No Genitourinary: No suprapubic pain or bladder distention, no CVA tenderness Extremities: no edema Skin: No rash Reports - Labs CBC & BMP: 09/20/16 06:01 09/20/16 06:01 Labs: Laboratory Results - last 24 hr 09/16/16 09/16/16 09/20/16 21:38 21:38 06:01 WBC 12.8 H RBC 3.30 L Hgb 8.8 L Hct 26.9 L MCV 81.5 L MCH 27 MCHC 32.7 RDW 14.2 Plt Count 441 H D MPV 9.8 Neut % (Auto) 64.7 Lymph % (Auto) 21.5 [place] % (Auto) 11.1 Eos % (Auto) 1.9 Baso % (Auto) 0.3 Neut # (Auto) 8.3 H Lymph # (Auto) 2.8 [place] # (Auto) 1.4 H Eos # (Auto) 0.2 Baso # (Auto) 0.0 Immature Gran % 0.5 Nucleated RBC % 0.0 Immature Gran # 0.07 Nucleated RBCs # 0.00 Immature Plt Fraction 0.0 Sodium Potassium Chloride Carbon Dioxide Anion Gap BUN Creatinine GFR Calculation BUN/Creatinine Ratio Glucose Calculated Osmolality Calcium Magnesium CSF Herpes I DNA (PCR) Negative CSF Herpes II DNA (PCR) Negative CSF BIBIANA/BK DNA Qual Negative 09/20/16 06:01 WBC RBC Hgb Hct MCV MCH MCHC RDW Plt Count MPV Neut % (Auto) Lymph % (Auto) [place] % (Auto) Eos % (Auto) Baso % (Auto) Neut # (Auto) Lymph # (Auto) [place] # (Auto) Eos # (Auto) Baso # (Auto) Immature Gran % Nucleated RBC % Immature Gran # Nucleated RBCs # Immature Plt Fraction Sodium 139 Potassium 4.0 Chloride 105 Carbon Dioxide 25 Anion Gap 13.0 BUN 3 L Creatinine 0.80 GFR Calculation 132 BUN/Creatinine Ratio 3.00 L Glucose 89 Calculated Osmolality 272.5 L Calcium 8.1 L Magnesium 1.8 CSF Herpes I DNA (PCR) CSF Herpes II DNA (PCR) CSF BIBIANA/BK DNA Qual - Reports Microbiology: Microbiology 09/16/16 21:38 Blood Culture - Preliminary Blood No growth at 3 days 09/16/16 20:41 Blood Culture - Preliminary Blood No growth at 3 days 09/16/16 21:38 CSF Culture - Final Cerebral Spinal Fluid No Growth at 72 hours. Gram Stain - Final No organisms seen Direct Antigen Panel - Final Neg for Antigens-see report 09/18/16 Unknown Quick Strep Confirmation Culture - Final Throat No Group A Streptococcus isolated. Group A Streptococcus Rapid Screen - Final Negative for Grp A Strep Ag 09/17/16 02:30 Throat Culture - Final Throat Normal Gale at 48 hours 09/17/16 Unknown Urine Culture - Final Urine,Voided No Growth at 48 hours. - Diagnostic Findings Procedure: Chest x-ray: report reviewed by me, image reviewed by me (Increased interstitial markings in lower lung diaz), CT Abdomen and Pelvis: report reviewed by me, image reviewed by me (Mild perinephric stranding on the right, visualized portions of the lungs noted clear)
[2016-09-20] MEDS: LEVOFLOXACIN 500 MG TABLET PO SCH (14:12)
[2016-09-20] MEDS ORDERED: ZALEPLON 5 MG CAPSULE PO PRN (22:58)
[2016-09-21] MEDS: HYDROmorphone 2 MG/1 ML VIAL IV PRN ×2 (01:56→23:33)
[2016-09-21] MEDS: PHENOL 1.4% THROAT SPRAY 177 ML BOTTLE PO PRN ×2 (02:00→09:42)
--- NOTE | 2016-09-21 09:23 | Hospitalist Progress Note ---
Assessment and Plan (1) Headache Status: Acute Assessment and plan: This is been associated with leukocytosis. Lumbar puncture was nonrevealing Current Visit: Yes (2) Leucocytosis Status: Acute Assessment and plan: Mixed absolute monocytosis and neutrophilia. Cultures negative, afebrile, and clinically stable with downward adjustment in antibiotic coverage 20 September. Current Visit: Yes Hospitalist: Subjective Interval history: 25-year-old female presented with complaints of headache with markedly elevated white blood cell count. This reflected both increase in neutrophils and monocytes. She underwent lumbar puncture without positive findings. Although the urine showed an active sediment urine culture is no growth. All blood cultures are negative. She was reviewed yesterday by infectious disease who recommended downgrading her antibiotic coverage to oral Levaquin alone. The patient continues to have a throbbing headache intermittently. There is been no fever and vital signs are stable. Exam - Constitutional Vitals: Period Temp Pulse Resp BP Sys/López Pulse Ox Last 24 Hr 97.4 F-99.2 F 87-107 18-20 120-142/75-90 93-100 General appearance: normal weight - Respiratory Respiratory exam: Present: clear to auscultation bilaterally. Absent: rales, rhonchi, wheezes - Cardiovascular Cardiovascular exam: Present: regular rate and rhythm - GI/Abdominal GI/Abdominal exam: Absent: normal bowel sounds, tenderness - Extremities Exam Extremities exam: Absent: edema - Neurological Exam Neurological exam: Present: alert, oriented X3 Results - Labs CBC & BMP: 09/20/16 06:01 09/20/16 06:01 Quality Measures - Stroke Symptom Onset Unknown: No
[2016-09-21] MEDS: LEVOFLOXACIN 500 MG TABLET PO SCH (09:40)
[2016-09-21] MEDS: PANTOPRAZOLE 40 MG TABLET PO SCH (09:40)
[2016-09-21] MEDS: ENOXAPARIN 40 MG/0.4 ML SYRINGE SUBCUT SCH (09:41)
[2016-09-21] MEDS: SODIUM CHLORIDE 0.9% 1,000 ML IV SCH (09:43)
[2016-09-22] MEDS: SUMAtriptan 25 MG TABLET PO PRN (03:00)
--- NOTE | 2016-09-22 07:01 | Discharge Summary ---
Hospital Course - Hospital Course Hospital Course: 25-year-old female who presented with complaints of headache and markedly elevated white blood cell count to the emergency department. This represented an increase in both neutrophils and monocytes. Urgent evaluation including lumbar puncture returned with no abnormality. The urine sediment was active possibly reflective of contamination as the cultures were negative. The patient initially received broad coverage for possible meningitis etc. As laboratory work returned normal the headache persisted. She was afebrile throughout the course. Her data was reviewed by infectious disease who recommended changing to oral antibiotics for anticipated 14 day treatment course. Patient tolerated the oral antibiotics without difficulty. Diagnosis - Discharge Diagnosis (1) Headache Status: Acute (2) Leucocytosis Status: Acute Discharge Plan - Discharge Data Disposition: Disch To Home/Self Care Condition at Discharge: Stable Discharge Diet: advance to your usual diet Activity: resume usual activities as tolerated - Discharge Medications New Levofloxacin Tab [Levaquin Tab] 500 mg PO DAILY #7 tablet - Follow Up or Referral - Forms/Instructions Exam - Constitutional Vitals: Period Temp Pulse Resp BP Sys/López Pulse Ox Last 24 Hr 97.2 F-97.8 F 82-101 18-20 122-140/77-94 95-97 Discharge Results Procedures and tests throughout hospitalization: Pending Orders 09/16/16 21:38 [facility] CSF([facility]) Stat Angiotensin Convert Enzyme CSF Stat Arbovirus Ab Panel IgG/IgM,CSF Stat CRMP-5-IgG Western Blot, CSF Stat Dementia-Autoimmune Eval, CSF Stat IgG/Albumin Ratio, CSF Stat BIBIANA Virus, PCR, CSF Stat Lyme Disease Ab, Immuno CSF Stat Mycoplasma pneumoniae Ab,CSF Stat NMO/AQP4-IgG FACS, CSF Stat Toxoplasma gondi PCR CSF Stat West Nile Virus Ab (IgG/M),CSF Stat DS: Provider Date of admission: 09/16/16 23:49 Primary care physician: . No PCP Attending physician on admission: Rustam Barnhart MD Consults: 09/17/16 15:38 Consult to Pharmacy [CONS] Routine Reason for Pharmacy Consult: Dose/Manage Vancomycin 09/20/16 07:58 Consult to Physician [CONS] Routine Comment: Headache with leukocytosis Consulting Provider: Georgie Rushing Consult to Specialist Group: Infectious Disease When should Consulting Provider be notified: Now Person Notified: Zeinab Date Notified: 09/20/16 Time Notified: 11:01 Consult Notification Comment: left message Discharging clinician: Sathya Cast MD Expected date of discharge: 09/22/16
[2016-09-22] MEDS: LEVOFLOXACIN 500 MG TABLET PO SCH (09:20)
[2016-09-22] MEDS: PANTOPRAZOLE 40 MG TABLET PO SCH (09:20)
[2016-09-22] MEDS: ENOXAPARIN 40 MG/0.4 ML SYRINGE SUBCUT SCH (09:20)
[2016-09-22 10:16] VITALS: BP 140/77
[2016-09-26 10:21] LABS: IgG, CSF 2.2 mg/dL (<=8.1); IgG/Albumin Ratio, CSF 0.24 (<=0.21)
[2016-09-26 16:01] LABS: IgG Immunoblot None Detected bands (NotDetected); IgM Immunoblot None Detected bands (NotDetect)
== END 2016-09-22 11:53 | disposition home or self-care (01) | DRG 103 ==
LOC: N.ED 19:31 → SUATTDRO 23:49 → N.EDINP 09-17 00:28 → N.5E 09-17 00:34
PROVIDERS: ADMIT Internal Medicine; ATTEND Internal Medicine Cardiovascular Disease